=== PATIENT | female | born 1990 | race Hispanic/Latino ===

== ENCOUNTER 2022-03-25 13:36 | Outpatient (CLI) | payer OTHER | END 2022-03-25 13:37 | disposition home or self-care (01) | LOC: CSHULT 13:36 | PROVIDERS: ATTEND Family Medicine | DX: Z34.82 Encounter for supervision of other normal pregnancy, second trimester (principal); Z3A.22 22 weeks gestation of pregnancy | CPT/HCPCS: 76805 ==

== ENCOUNTER 2022-07-08 07:46 | Inpatient (IN) | payer MEDICAID, OTHER, SELFPAY ==
[2022-07-08] MEDS ORDERED: Bupivacaine 0.25% HCL 30 ML VIAL ONE (08:00)
[2022-07-08 08:17] VITALS: BMI 37.0
[2022-07-08] MEDS ORDERED: Ondansetron PF 4 MG/2 ML Vial IVP PRN ×3 (08:48→22:02)
[2022-07-08] MEDS ORDERED: Methylergonovine 0.2 MG/ML VIAL IM PRN (08:48)
[2022-07-08] MEDS ORDERED: Promethazine HCl 25 MG/ML VIAL IM PRN ×3 (08:48→22:02)
[2022-07-08] MEDS ORDERED: Lidocaine 1% (PF) 30 ML VIAL SC PRN (08:48)
[2022-07-08] MEDS ORDERED: Diphenoxylate HCl/Atropine Tablet PO PRN (08:48)
[2022-07-08] MEDS ORDERED: HYDROcodone/Acetaminophen 5/325 mg Tablet PO PRN ×2 (08:48→22:02)
[2022-07-08] MEDS ORDERED: Ibuprofen 800 MG TAB PO PRN (08:48)
[2022-07-08] MEDS ORDERED: Tranexamic Acid 1,000 MG/10 ML VIAL IVP PRN (08:48)
[2022-07-08] MEDS ORDERED: Carboprost 250 MCG/ML AMP IM PRN (08:48)
[2022-07-08] MEDS ORDERED: Fentanyl 100 MCG/2 ML VIAL SLOW IVP PRN (08:48)
[2022-07-08] MEDS ORDERED: Misoprostol 200 MCG TAB PR PRN (08:48)
[2022-07-08] MEDS ORDERED: Acetaminophen 500 MG TAB PO PRN (08:48)
[2022-07-08] MEDS ORDERED: Penicillin G Potassium 5 MILL.UNITS in Sodium Chloride 0.9% 100 ML IVPB SCH (09:00)
[2022-07-08] MEDS ORDERED: NS w/ Oxytocin 30 units 500 ML IV SCH ×3 (09:00)
[2022-07-08] MEDS: Misoprostol 100 MCG TAB PO SCH ×2 (10:12→13:20)
[2022-07-08 10:14] LABS: Hemoglobin 13.8 g/dL (12.0-15.5); Mean Corpuscular HGB CONC 32.8 g/dL (32.0-36.0); Mean Corpuscular Hemoglobin 27.5 pg (27.0-33.0); Mean Platelet Volume 11.6 fl (7.4-10.4); Platelet Count 202 10x3/uL (150-450); RBC Distribution Width 13.9 % (11.5-14.5); Red Blood Cell (RBC) Count 5.01 10x6/uL (3.90-5.03); White Blood Cell (WBC) Count 8.8 10x3/uL (3.5-10.5)
[2022-07-08 10:44] LABS: Syphilis Antibody Nonreactive (Nonreactive); Syphilis Antibody Index 0.03 S/CO (<1.00 Non-Reactive)
[2022-07-08 10:46] LABS: HBSAg Index 0.14 S/CO (0-0.99); Hep B Surf Ag - L&D Non-Reactive S/CO (NonReactive)
[2022-07-08] MEDS: Penicillin G 2.5 MILL.units 2.5 MILL.UNITS in Premix Bag 1 BAG IVPB SCH ×2 (14:04→18:45)
[2022-07-08] MEDS: hydrALAZINE 20 MG/ML VIAL SLOW IVP PRN ×2 (15:19→17:28)
[2022-07-08] MEDS ORDERED: Fentanyl 2 mcg/Bup 0.1% Cadd 100 ML ONE (17:57)
[2022-07-08] MEDS ORDERED: Moisturizing Cream (Eucerin) 113 GM JAR TOP PRN (18:37)
[2022-07-08] MEDS ORDERED: Lactated Ringer's 500 ML IV PRN (18:37)
[2022-07-08] MEDS ORDERED: diphenhydrAMINE 50 MG/ML VIAL IVP PRN (18:37)
[2022-07-08] MEDS ORDERED: Acetaminophen 325 MG TAB PO PRN (18:37)
[2022-07-08] MEDS ORDERED: Naloxone HCl 0.4 mg/ml Vial IVP PRN ×2 (18:37)
[2022-07-08] MEDS ORDERED: ePHEDrine Sulfate 50 MG/10 ML VIAL SLOW IVP PRN (18:37)
[2022-07-08] MEDS: Lactated Ringer's 1,000 ML IV SCH (18:44)
[2022-07-08] MEDS ORDERED: Communication Order-Pharmacy FS SCH (18:45)
[2022-07-08] MEDS ORDERED: Fentanyl 2 mcg/Bupivacaine 0.1% Cassette 100 ML EPIDURAL SCH (18:45)
[2022-07-08] MEDS ORDERED: Magnesium Sulfate 20 gm/500 ml 20 GM/500 ML BAG ONE (21:04)
[2022-07-08] MEDS ORDERED: Bisacodyl 10 MG SUPP PR PRN (22:02)
[2022-07-08] MEDS ORDERED: Calcium Gluc 4.6 MEQ/10 ML (100 MG/ML) SLOW IVP PRN (22:02)
[2022-07-08] MEDS ORDERED: Milk Of Magnesia 30 ML UDCUP PO PRN (22:02)
[2022-07-08] MEDS ORDERED: Lanolin Ointment 7 GM TUBE TOP PRN (22:02)
[2022-07-08] MEDS ORDERED: hydrALAZINE 20 MG/ML VIAL SLOW IVP PRN ×2 (22:02)
[2022-07-08] MEDS ORDERED: Boostrix 0.5 ML (Tdap) VIAL (>/=7 yrs of age) IM ONE (22:02)
[2022-07-08] MEDS ORDERED: Magnesium Sulfate 20 gm/500 ml 20 GM/500 ML BAG IVPB SCH (22:02)
[2022-07-08] MEDS ORDERED: Labetalol HCl 100 MG/20 ML VIAL SLOW IVP PRN (22:02)
[2022-07-08] MEDS ORDERED: diphenhydrAMINE 25 MG CAP PO PRN (22:02)
[2022-07-08] MEDS ORDERED: Benzocaine-Menthol 82.5 ML CAN TOP PRN (22:02)
[2022-07-08] MEDS ORDERED: Lorazepam 2 MG/ML VIAL SLOW IVP PRN (22:02)
[2022-07-08] MEDS ORDERED: NIFEdipine XL 30 MG TAB PO SCH (23:00)
[2022-07-09] MEDS: Ibuprofen 800 MG TAB PO SCH ×4 (03:15→21:38)
[2022-07-09] MEDS ORDERED: Ferrous Sulfate 325 MG TAB PO SCH (08:00)
[2022-07-09] MEDS ORDERED: Docusate 100 MG CAP PO SCH (09:00)
[2022-07-09] MEDS: Prenatal Vitamin 1 TAB PO SCH (12:02)
[2022-07-09] MEDS ORDERED: Misoprostol 200 MCG TAB VAG PRN (16:49)
[2022-07-09] MEDS ORDERED: Boostrix 0.5 ML (Tdap) VIAL (>/=7 yrs of age) IM ONE (16:49)
[2022-07-09] MEDS ORDERED: Bisacodyl 10 MG SUPP PR PRN (16:49)
[2022-07-09] MEDS ORDERED: Milk Of Magnesia 30 ML UDCUP PO PRN (16:49)
[2022-07-09] MEDS: Docusate 100 MG CAP PO SCH (21:38)
[2022-07-10 04:22] LABS: Hemoglobin 11.4 g/dL (12.0-15.5)
[2022-07-10] MEDS: Ibuprofen 800 MG TAB PO SCH (05:00)
[2022-07-10] MEDS: Ferrous Sulfate 325 MG TAB PO SCH ×2 (08:06→08:07)
[2022-07-10] MEDS: Prenatal Vitamin 1 TAB PO SCH (08:40)
[2022-07-10] MEDS: Docusate 100 MG CAP PO SCH (08:40)
[2022-07-10 11:21] VITALS: BP 144/69; TEMP 98.2
[2022-07-10] MEDS: Misoprostol 100 MCG TAB PO SCH (15:41)
[2022-07-10] MEDS: Lactated Ringer's 1,000 ML IV SCH (15:42)
[2022-07-10] MEDS: Penicillin G 2.5 MILL.units 2.5 MILL.UNITS in Premix Bag 1 BAG IVPB SCH (15:42)
== END 2022-07-10 16:45 | disposition home or self-care (01) | DRG 807 ==
LOC: CSHLD/OP 07:46 → CSHLD 09:27 → CSHPP 07-09 18:16
PROVIDERS: ADMIT Family Medicine; ATTEND Family Medicine
PROC: 10E0XZZ Delivery of Products of Conception, External Approach (ICD-10-PCS; principal; 2022-07-08)
PROC: 0KQM0ZZ Repair Perineum Muscle, Open Approach (ICD-10-PCS; 2022-07-08)
PROC: 3E0P7VZ Introduction of Hormone into Female Reproductive, Via Natural or Artificial Opening (ICD-10-PCS; 2022-07-08)
DX: O42.02 Full-term premature rupture of membranes, onset of labor within 24 hours of rupture (principal); Z37.0 Single live birth; Z3A.37 37 weeks gestation of pregnancy; O24.420 Gestational diabetes mellitus in childbirth, diet controlled; O99.824 Streptococcus B carrier state complicating childbirth; Z79.899 Other long term (current) drug therapy; O70.1 Second degree perineal laceration during delivery; O69.81X0 Labor and delivery complicated by cord around neck, without compression, not applicable or unspecified
CPT/HCPCS: 36415; 36416; 51702; 85014; 85018; 85027; 86780; 86850; 86900; 86901; 87340; 88307; 99285; J0360; J2405; J2540; J2590; J3475; J3490; J7120; S0020